=== PATIENT | male | born 1960 | race Hispanic/Latino ===

== ENCOUNTER → 2019-01-03 | Outpatient (CLI) | payer BC | END | disposition home or self-care (01) | LOC: RAH 10:19 | PROVIDERS: ATTEND Urology | DX: K59.00 Constipation, unspecified (principal); N20.0 Calculus of kidney; M47.815 Spondylosis without myelopathy or radiculopathy, thoracolumbar region; Z90.49 Acquired absence of other specified parts of digestive tract | CPT/HCPCS: 74018; 76100 ==

== ENCOUNTER 2021-10-08 21:35 | Emergency (ER) | payer BC ==
[~2021-10-08] VITALS: Ht 154.9 cm; Wt 65.8 kg
[2021-10-08] MEDS ORDERED: 0.9%NACL 1000ML 1,000 ML IV ONE (22:00)
[2021-10-08] MEDS ORDERED: ONDANSETRON 4MG INJ IVP ONE (22:00)
[2021-10-08] MEDS ORDERED: ACETAMINOPHEN 500 MG TABLET PO ONE (22:00)
[2021-10-08] MEDS ORDERED: KETOROLAC 30MG VIAL (30MG/ML) IVP ONE (22:00)
[2021-10-08] MEDS ORDERED: ACETAMINOPHEN 500 MG TABLET ONE (22:04)
[2021-10-08 22:12] LABS: BASOPHILS % (AUTO) 0.1 % (0.0-5.0); EOSINOPHILS % (AUTO) 0.1 % (0.0-8.0); LYMPHOCYTES % (AUTO) 19.8 % (21.0-51.0); MEAN CORPUSCULAR HEMOGLOBIN 30.7 pg (27.0-33.0); MEAN CORPUSCULAR HGB CONC 34.6 g/dL (32.0-36.0); MEAN CORPUSCULAR VOLUME 88.7 fL (79-99); MONOCYTES % (AUTO) 5.2 % (3.0-13.0); PLATELET COUNT (AUTO) 264 K/uL (130-400); RED BLOOD CELL COUNT(AUTO) 4.17 MIL/uL (4.50-6.20); RED CELL DISTRIBUTION WIDTH 11.9 % (11.0-15.5); WHITE BLOOD COUNT (AUTO) 14.6 K/uL (4.8-10.8)
[2021-10-08 22:19] LABS: APPEARANCE,URINE SL CLOUDY (CLEAR); BILIRUBIN,URINE NEGATIVE (NEGATIVE); COLOR,URINE YELLOW (YELLOW); GLUCOSE, URINE (UA) NEGATIVE (NEGATIVE); KETONES,URINE NEGATIVE (NEGATIVE); LEUKOCYTE ESTERASE ,URINE SMALL (NEGATIVE); NITRATE,URINE NEGATIVE (NEGATIVE); OCCULT BLOOD,URINE TRACE-INTACT (NEGATIVE); PH,URINE 7.5 (5.0-8.0); PROTEIN,URINE TRACE mg/dL (NEGATIVE); UROBILINOGEN,URINE 0.2 mg/dL (0.2-1.0)
[2021-10-08 22:24] LABS: CREATININE 0.9 mg/dL (0.5-1.5); POTASSIUM 3.7 mmol/L (3.5-5.1)
[2021-10-08 22:29] LABS: ALBUMIN 3.5 g/dL (3.5-5.0); TOTAL PROTEIN, SERUM 7.5 g/dL (6.0-8.3)
[2021-10-08 22:30] LABS: BACTERIA,URINE Moderate /HPF (None Seen); RBC,URINE 0-1 /HPF (0-1); SQUAMOUS EPITHELIAL CELL,UR Rare /HPF (0-2)
[2021-10-08] MEDS ORDERED: CEFTRIAXONE 1G VIAL IVP ONE (23:00)
[2021-10-08] MEDS ORDERED: TAMS-1 PO (23:08)
[2021-10-08] MEDS ORDERED: KETO10 PO (23:08)
[2021-10-08] MEDS ORDERED: CEPH500B PO (23:08)
[2021-10-08 23:14] VITALS: BP 149/63
[2021-10-08] MEDS ORDERED: TAMSULOSIN HCL 0.4 MG CAP.ER.24H PO SCH (23:30)
== END 2021-10-08 23:22 | disposition home or self-care (01) ==
LOC: EDH 21:35
DX: U07.1 COVID-19 (principal); N20.0 Calculus of kidney; N39.0 Urinary tract infection, site not specified; E86.0 Dehydration; R50.9 Fever, unspecified; I10 Essential (primary) hypertension; E03.9 Hypothyroidism, unspecified; Z88.8 Allergy status to other drugs, medicaments and biological substances; Z88.2 Allergy status to sulfonamides; Z88.1 Allergy status to other antibiotic agents; Z79.899 Other long term (current) drug therapy; Z90.49 Acquired absence of other specified parts of digestive tract; Z98.890 Other specified postprocedural states
CPT/HCPCS: 99284; 74176; 96374; 71045; 96375; 96361; 84484; 80053; 83690; 85025; 87040 ×2; 87077; 87088; 87186; 83605; 81001; 36415; J7030; J0696; J2405; J1885

== ENCOUNTER → 2021-10-23 | Outpatient (CLI) | payer BC ==
[~2021-10-23] MED LIST: CEPH500B PO; KETO10 PO; TAMS-1 PO
== END | disposition home or self-care (01) ==
LOC: RAH 15:02
PROVIDERS: ATTEND Urology
DX: N20.9 Urinary calculus, unspecified (principal)
CPT/HCPCS: 74018; 76100

== ENCOUNTER 2021-11-01 19:32 | Observation (INO) | payer BC ==
[~2021-11-01] VITALS: Ht 154.9 cm; Wt 117.9 kg
[2021-11-01 20:30] LABS: BASOPHILS % (AUTO) 0.2 % (0.0-5.0); EOSINOPHILS % (AUTO) 1.1 % (0.0-8.0); HEMATOCRIT 34.3 % (42-54); LYMPHOCYTES % (AUTO) 32.8 % (21.0-51.0); MEAN CORPUSCULAR HEMOGLOBIN 30.7 pg (27.0-33.0); MEAN CORPUSCULAR HGB CONC 34.7 g/dL (32.0-36.0); MEAN CORPUSCULAR VOLUME 88.6 fL (79-99); MONOCYTES % (AUTO) 8.8 % (3.0-13.0); NEUTROPHILS % (AUTO) 56.9 % (40.0-77.0); PLATELET COUNT (AUTO) 373 K/uL (130-400); RED BLOOD CELL COUNT(AUTO) 3.87 MIL/uL (4.50-6.20); RED CELL DISTRIBUTION WIDTH 12.7 % (11.0-15.5); WHITE BLOOD COUNT (AUTO) 6.6 K/uL (4.8-10.8)
[2021-11-01 20:43] LABS: APPEARANCE,URINE CLOUDY (CLEAR); BILIRUBIN,URINE NEGATIVE (NEGATIVE); COLOR,URINE YELLOW (YELLOW); GLUCOSE, URINE (UA) NEGATIVE (NEGATIVE); KETONES,URINE NEGATIVE (NEGATIVE); LEUKOCYTE ESTERASE ,URINE SMALL (NEGATIVE); NITRATE,URINE POSITIVE (NEGATIVE); OCCULT BLOOD,URINE NEGATIVE (NEGATIVE); PROTEIN,URINE NEGATIVE (NEGATIVE); UROBILINOGEN,URINE 0.2 mg/dL (0.2-1.0)
[2021-11-01 20:47] LABS: CREATININE 0.8 mg/dL (0.5-1.5); TOTAL PROTEIN, SERUM 7.8 g/dL (6.0-8.3)
[2021-11-01 20:48] LABS: BACTERIA,URINE Moderate /HPF (None Seen); RBC,URINE 0-1 /HPF (0-1)
[2021-11-01 20:49] LABS: MUCUS,URINE Few LPF (None Seen); SQUAMOUS EPITHELIAL CELL,UR Rare /HPF (0-2)
[2021-11-01] MEDS ORDERED: LIDOCAINE HCL 2% VISCOUS 15 ML UDCUP PO ONE (21:00)
[2021-11-01] MEDS ORDERED: MAG/ALUM/SIMETH 30 ML UDCUP PO ONE (21:00)
[2021-11-01] MEDS ORDERED: PANTOPRAZOLE 40 MG/VIAL IVP ONE (21:00)
[2021-11-01] MEDS ORDERED: CEFTRIAXONE 1G VIAL IVP ONE (21:30)
[2021-11-01] MEDS ORDERED: ONDANSETRON 4MG INJ ONE (21:32)
[2021-11-01 21:34] LABS: MAGNESIUM 1.8 mg/dL (1.80-2.40); THYROID STIMULATING HORMONE 1.02 uIU/mL (0.36-3.74)
[2021-11-01] MEDS: NS-20 MEQ KCL 1000ML 1,000 ML IV SCH ×2 (21:41→23:30)
[2021-11-01] MEDS ORDERED: ONDANSETRON 4MG INJ IVP ONE (22:00)
[2021-11-01] MEDS ORDERED: LORAZEPAM 1 MG TABLET ONE (22:11)
[2021-11-01] MEDS ORDERED: LORAZEPAM 1 MG TABLET PO ONE (22:30)
[2021-11-02] MEDS ORDERED: POTASSIUM CHLORIDE 20MEQ/100ML 100 ML IV PRN
[2021-11-02] MEDS ORDERED: GLUCAGON 1MG KIT 1 MG ML IM PRN
[2021-11-02] MEDS ORDERED: HYDRALAZINE 20MG/ML VIAL IV PRN
[2021-11-02] MEDS ORDERED: ACETAMINOPHEN 650 MG SUPPOSITORY RC PRN
[2021-11-02] MEDS ORDERED: ACETAMINOPHEN 325 MG TAB PO PRN
[2021-11-02] MEDS ORDERED: LABETALOL 20MG SYG IV PRN
[2021-11-02] MEDS ORDERED: TEMAZEPAM 15 MG CAPSULE PO PRN
[2021-11-02] MEDS ORDERED: DEXTROSE 50%-WATER 50 ML DISP.SYRIN IV PRN
[2021-11-02] MEDS ORDERED: LACTULOSE 20 GM/30 ML UDCUP PO PRN
[2021-11-02] MEDS ORDERED: DOCUSATE SODIUM 100 MG CAP PO PRN
[2021-11-02] MEDS ORDERED: CLONIDINE HCL 0.1 MG TABLET PO PRN
[2021-11-02] MEDS ORDERED: MAGNESIUM 2GM PREMIX 50ML 50 ML IV PRN
[2021-11-02] MEDS ORDERED: POTASSIUM CHLORIDE 10% ELIXIR 20 MEQ/15 ML UDCUP PO PRN
[2021-11-02] MEDS ORDERED: PROMETHAZINE HCL 25 MG/ML 1ML AMPULE IM PRN (00:30)
[2021-11-02] MEDS: 0.9%NACL 1000ML 1,000 ML IV SCH ×2 (00:50→10:50)
[2021-11-02] MEDS ORDERED: LEVO88TA4 PO (01:14)
[2021-11-02] MEDS ORDERED: FLUC150T48 PO (01:14)
[2021-11-02] MEDS ORDERED: CEPH500C2 PO (01:14)
[2021-11-02] MEDS ORDERED: KETO10TA2 PO (01:14)
[2021-11-02] MEDS ORDERED: DEXL60CA3 PO (01:14)
[2021-11-02] MEDS ORDERED: LISI1TAB53 PO (01:14)
[2021-11-02] MEDS ORDERED: ONDA4TAB10 PO (01:14)
[2021-11-02] MEDS ORDERED: ALPRAZOLAM 0.25 MG TABLET PO PRN (01:30)
[2021-11-02 02:45] VITALS: BP 153/89
[2021-11-02 03:44] LABS: BASOPHILS % (AUTO) 0.3 % (0.0-5.0); EOSINOPHILS % (AUTO) 1.7 % (0.0-8.0); LYMPHOCYTES % (AUTO) 42.6 % (21.0-51.0); MEAN CORPUSCULAR HEMOGLOBIN 30.9 pg (27.0-33.0); MEAN CORPUSCULAR HGB CONC 34.8 g/dL (32.0-36.0); MEAN CORPUSCULAR VOLUME 88.8 fL (79-99); MONOCYTES % (AUTO) 8.4 % (3.0-13.0); NEUTROPHILS % (AUTO) 46.8 % (40.0-77.0); PLATELET COUNT (AUTO) 313 K/uL (130-400); RED BLOOD CELL COUNT(AUTO) 3.49 MIL/uL (4.00-5.50); RED CELL DISTRIBUTION WIDTH 12.5 % (11.0-15.5); WHITE BLOOD COUNT (AUTO) 5.9 K/uL (4.8-10.8)
[2021-11-02 03:57] LABS: CREATININE 0.8 mg/dL (0.5-1.5); POTASSIUM 3.3 mmol/L (3.5-5.1)
[2021-11-02] MEDS: KCL 20 MEQ ERTAB PO PRN ×2 (06:03→10:25)
[2021-11-02] MEDS ORDERED: LEVOTHYROXINE 88 MCG TABLET PO SCH (06:30)
[2021-11-02 08:35] VITALS: BP 133/80
[2021-11-02] MEDS ORDERED: PANTOPRAZOLE 40 MG TAB DR PO SCH (09:00)
[2021-11-02] MEDS: HYDROCHLOROTHIAZIDE 25 MG TABLET PO SCH ×2 (09:00→10:01)
[2021-11-02] MEDS: LISINOPRIL 20 MG TABLET PO SCH ×2 (09:00→10:02)
[2021-11-02] MEDS: ONDANSETRON 4MG INJ IVP PRN ×2 (10:01→19:05)
[2021-11-02] MEDS: CEFTRIAXONE 1G VIAL IVP SCH (10:01)
[2021-11-02] MEDS: ENOXAPARIN SODIUM 30 MG/0.3 ML SQ SCH (10:05)
[2021-11-02] MEDS: MORPHINE 2 MG SYG IVP PRN ×2 (10:17→19:05)
[2021-11-02] MEDS ORDERED: PHARMACY COMMUNICATION MISC SCH (11:00)
[2021-11-02] MEDS ORDERED: ALPRAZOLAM 0.5 MG TABLET PO PRN (11:00)
[2021-11-02 12:03] VITALS: BP 130/77
[2021-11-02 16:00] VITALS: BP 118/70
[2021-11-02 18:21] LABS: CREATININE 0.8 mg/dL (0.5-1.5); POTASSIUM 3.6 mmol/L (3.5-5.1)
[2021-11-02 19:32] VITALS: BP 142/90
[2021-11-02] MEDS: METOPROLOL TARTRATE 25 MG TAB PO SCH (21:00)
[2021-11-02] MEDS: PANTOPRAZOLE 40 MG/VIAL IVP SCH (22:04)
[2021-11-02] MEDS: MICONAZOLE NITRATE 45 GM CREAM.APPL VG SCH (22:04)
[2021-11-02 23:47] VITALS: BP 126/65
[2021-11-03] VITALS (17 sets, daily range): BP systolic 111–141; BP diastolic 65–86
[2021-11-03] MEDS: 0.9%NACL 1000ML 1,000 ML IV SCH ×3 (03:17→19:41)
[2021-11-03 03:31] LABS: HEMATOCRIT 30.7 % (36-48); MEAN CORPUSCULAR HEMOGLOBIN 31.5 pg (27.0-33.0); MEAN CORPUSCULAR HGB CONC 34.5 g/dL (32.0-36.0); MEAN CORPUSCULAR VOLUME 91.4 fL (79-99); RED BLOOD CELL COUNT(AUTO) 3.36 MIL/uL (4.00-5.50); RED CELL DISTRIBUTION WIDTH 13.1 % (11.0-15.5); WHITE BLOOD COUNT (AUTO) 5.6 K/uL (4.8-10.8)
[2021-11-03 03:43] LABS: CREATININE 0.8 mg/dL (0.5-1.5); POTASSIUM 4.1 mmol/L (3.5-5.1)
[2021-11-03] MEDS: LEVOTHYROXINE 88 MCG TABLET PO SCH (05:04)
[2021-11-03] MEDS: METOPROLOL TARTRATE 25 MG TAB PO SCH ×2 (09:00→21:00)
[2021-11-03] MEDS: ENOXAPARIN SODIUM 30 MG/0.3 ML SQ SCH (09:00)
[2021-11-03] MEDS: LACTOBACILLUS RHAMNOSUS GG 1 EACH CAP.SPRINK PO SCH (09:00)
[2021-11-03] MEDS: LISINOPRIL 20 MG TABLET PO SCH (09:00)
[2021-11-03] MEDS: CEFTRIAXONE 1G VIAL IVP SCH (09:11)
[2021-11-03] MEDS: PANTOPRAZOLE 40 MG/VIAL IVP SCH ×2 (09:19→21:40)
[2021-11-03] MEDS ORDERED: PROPOFOL 10 MG/ML 20ML VIAL IV ONE (12:18)
[2021-11-03] MEDS: ONDANSETRON 4MG INJ IVP PRN (15:48)
[2021-11-03] MEDS: MORPHINE 2 MG SYG IVP PRN (15:48)
[2021-11-03] MEDS ORDERED: LIDOCAINE HCL 2% VISCOUS 15 ML UDCUP PO SCH (20:00)
[2021-11-03] MEDS ORDERED: LIDOCAINE HCL 2% VISCOUS 15 ML UDCUP PO ONE (21:00)
[2021-11-03] MEDS ORDERED: COMPOUND PO MISCELLANEOUS 1 EACH MISC MISC PRN (21:30)
[2021-11-03] MEDS: LIDO 2% VISC 30ML+MAG/AL/SIMETH 30ML+DICYCLOMINE 20MG 10ML PO SCH ×3 (21:41)
[2021-11-03] MEDS: MICONAZOLE NITRATE 45 GM CREAM.APPL VG SCH (21:41)
[2021-11-04] MEDS: LIDO 2% VISC 30ML+MAG/AL/SIMETH 30ML+DICYCLOMINE 20MG 10ML PO SCH ×15 (01:04→13:30)
[2021-11-04 01:06] VITALS: BP 128/82
[2021-11-04 04:00] VITALS: BP 137/90
[2021-11-04 05:30] LABS: BASOPHILS % (AUTO) 0.3 % (0.0-5.0); EOSINOPHILS % (AUTO) 2.1 % (0.0-8.0); HEMATOCRIT 30.9 % (36-48); LYMPHOCYTES % (AUTO) 26.7 % (21.0-51.0); MEAN CORPUSCULAR HGB CONC 33.7 g/dL (32.0-36.0); MONOCYTES % (AUTO) 6.2 % (3.0-13.0); NEUTROPHILS % (AUTO) 64.5 % (40.0-77.0); PLATELET COUNT (AUTO) 298 K/uL (130-400); RED BLOOD CELL COUNT(AUTO) 3.36 MIL/uL (4.00-5.50); WHITE BLOOD COUNT (AUTO) 9.1 K/uL (4.8-10.8)
[2021-11-04 05:48] LABS: CREATININE 0.7 mg/dL (0.5-1.5); MAGNESIUM 1.8 mg/dL (1.80-2.40); POTASSIUM 3.9 mmol/L (3.5-5.1); TOTAL PROTEIN, SERUM 6.2 g/dL (6.0-8.3)
[2021-11-04] MEDS: LEVOTHYROXINE 88 MCG TABLET PO SCH (06:09)
[2021-11-04 07:30] VITALS: BP 133/83
[2021-11-04] MEDS: METOPROLOL TARTRATE 25 MG TAB PO SCH (09:00)
[2021-11-04] MEDS: LACTOBACILLUS RHAMNOSUS GG 1 EACH CAP.SPRINK PO SCH (09:00)
[2021-11-04] MEDS: ENOXAPARIN SODIUM 30 MG/0.3 ML SQ SCH (09:00)
[2021-11-04] MEDS: LISINOPRIL 20 MG TABLET PO SCH (09:00)
[2021-11-04] MEDS: CEFTRIAXONE 1G VIAL IVP SCH (09:41)
[2021-11-04] MEDS: PANTOPRAZOLE 40 MG/VIAL IVP SCH (09:41)
[2021-11-04 11:00] VITALS: BP 112/67
[2021-11-04] MEDS ORDERED: AMOX-427 PO (14:58)
[2021-11-04] MEDS ORDERED: METO25 PO (14:58)
[2021-11-04] MEDS ORDERED: PANT40I PO (14:58)
[2021-11-04 15:30] VITALS: BP 130/73
== END 2021-11-04 16:30 | disposition home or self-care (01) ==
LOC: EDH 19:32 → EDSEX 19:32 → EDHIP 23:34 → 2DH 11-02 02:53 → 3DH 11-03 06:01
PROVIDERS: ADMIT Internal Medicine; ATTEND Internal Medicine
DX: K52.9 Noninfective gastroenteritis and colitis, unspecified (principal); Z20.822 Contact with and (suspected) exposure to COVID-19; R10.13 Epigastric pain; N39.0 Urinary tract infection, site not specified; B96.20 Unspecified Escherichia coli [E. coli] as the cause of diseases classified elsewhere; E87.6 Hypokalemia; D64.9 Anemia, unspecified; R73.9 Hyperglycemia, unspecified; I10 Essential (primary) hypertension; E03.9 Hypothyroidism, unspecified; E06.3 Autoimmune thyroiditis; B37.9 Candidiasis, unspecified; E86.0 Dehydration; E87.1 Hypo-osmolality and hyponatremia; F41.8 Other specified anxiety disorders; R11.2 Nausea with vomiting, unspecified; F32.A Depression, unspecified; F41.9 Anxiety disorder, unspecified; M43.16 Spondylolisthesis, lumbar region; Z87.442 Personal history of urinary calculi; Z79.899 Other long term (current) drug therapy; Z87.440 Personal history of urinary (tract) infections
CPT/HCPCS: 96365; 96366 ×2; 96375 ×2; 99285; 86677 ×2; 84443; 83735 ×2; 84484 ×3; 80053 ×2; 85025 ×3; 87077; 87088; 87186; 84439; 81001; 36415 ×4; 71045; 93005; 96376 ×3; 96372; 96361 ×3; 80048 ×3; 83880; 87040 ×2; 87635; 74176; 43239; 85027; 82533; G0378 ×63; J0696 ×5; J2405 ×4; J3480; C9113 ×5; J7030 ×3; J1650; J2704

== ENCOUNTER → 2022-09-14 | Outpatient (CLI) | payer BC ==
[~2022-09-14] MED LIST changes: +AMOX-427 PO; -CEPH500B PO; +DEXL60CA3 PO; -KETO10 PO; +KETO10TA2 PO; +LEVO88TA4 PO; +LISI1TAB53 PO; +METO25 PO; +ONDA4TAB10 PO; +PANT40I PO
== END | disposition home or self-care (01) ==
LOC: RAH 10:18
PROVIDERS: ATTEND Urology
DX: N20.0 Calculus of kidney (principal)
CPT/HCPCS: 74018; 76100

== ENCOUNTER → 2024-01-05 | Outpatient (CLI) | payer BC ==
[~2024-01-05] MED LIST changes: +ONDA-243 PO; -ONDA4TAB10 PO
== END | disposition home or self-care (01) ==
LOC: RAH 12:51
PROVIDERS: ATTEND Urology
DX: N20.0 Calculus of kidney (principal); Z90.49 Acquired absence of other specified parts of digestive tract; N28.1 Cyst of kidney, acquired
CPT/HCPCS: 74176

== ENCOUNTER → 2025-02-20 | Outpatient (CLI) | payer BC ==
[~2025-02-20] MED LIST changes: -TAMS-1 PO; +TAMS-55 PO
--- NOTE | 2025-02-20 14:56 | HMCIMG ---
EXAM: CT Abdomen and Pelvis Without IV contrast CLINICAL HISTORY: Other disorders of mineral metabolism. History of left nephrolithiasis TECHNIQUE: Axial computed tomography images of the abdomen and pelvis without intravenous contrast. CONTRAST: No IV contrast. COMPARISON: None provided. FINDINGS: LUNG BASES: The lung bases appear clear. No pleural effusions are seen. LIVER: There is a 2.2 cm hypoattenuating cystic structure within the medial aspect of the right lobe of the liver. GALLBLADDER AND BILE DUCTS: The gallbladder is surgically absent PANCREAS: Unremarkable. SPLEEN: Unremarkable. ADRENAL GLANDS: Unremarkable. KIDNEYS, URETERS, AND BLADDER: The kidneys appear within normal limits. There is no hydronephrosis or hydroureter. Small 2 mm nonobstructing renal stone within the inferior pole of the left kidney. No other nephrolithiasis. No ureteral calculus or bladder calculi STOMACH AND BOWEL: Unremarkable appearance of the stomach and bowel. No evidence of bowel obstruction. No evidence suggesting enteritis or colitis. APPENDIX: No evidence of acute appendicitis on CT examination. PERITONEUM: No free fluid. No free air. LYMPH NODES: No lymphadenopathy is evident. REPRODUCTIVE: Unremarkable as visualized. VASCULATURE: No evidence of abdominal aortic aneurysm. BONES: No aggressive appearing osseous lesion. No acute osseous pathology evident. Chronic bilateral L5 spondylolysis resulting in grade 1 anterior listhesis of L5 over S1. IMPRESSION: 1. No acute intraabdominal or pelvic findings. 2. 2 mm nonobstructing renal stone in the inferior pole of the left kidney. 3. 2.2 cm hepatic cyst in the medial right lobe. 4. Status post cholecystectomy. 5. Grade 1 L5-S1 anterolisthesis with bilateral L5 spondylolysis. /[place]
== END | disposition home or self-care (01) ==
LOC: RAH 12:52
PROVIDERS: ATTEND Urology
DX: N20.0 Calculus of kidney (principal); E83.89 Other disorders of mineral metabolism; K76.89 Other specified diseases of liver; M43.16 Spondylolisthesis, lumbar region; Z90.49 Acquired absence of other specified parts of digestive tract; Z87.442 Personal history of urinary calculi
CPT/HCPCS: 74176